=== PATIENT | female | born 1975 | race Caucasian/White ===

== ENCOUNTER 2021-09-11 18:26 | Inpatient (IN) | payer SELFPAY ==
[~2021-09-11] VITALS: Ht 154.9 cm; Wt 68.0 kg
[2021-09-11] MEDS ORDERED: SODIUM CHLORIDE 0.9% 1000ML 1,000 ML IV ONE (18:45)
[2021-09-11] MEDS ORDERED: ASPIRIN 325 MG TAB PO ONE (18:45)
[2021-09-11 18:54] LABS: BASOPHILS # (AUTO) 0.1 (0.0-0.1); BASOPHILS % 0.7 % (0.0-1.0); EOSINOPHILS % 0.1 % (0.0-6.0); HEMATOCRIT 47.3 % (34.2-44.1); HEMOGLOBIN 15.9 g/dL (12.0-16.0); LYMPHOCYTES # (AUTO) 0.3 (1.0-3.2); LYMPHOCYTES % 3.7 % (18.0-39.1); MEAN CORPUSCULAR HEMOGLOBIN 30.7 pg (28-32); MEAN CORPUSCULAR HGB CONC 33.6 g/dL (31-35); MEAN CORPUSCULAR VOLUME 91.3 fL (81-99); MONOCYTES # (AUTO) 0.2 (0.2-0.8); MONOCYTES % 2.4 % (4.4-11.3); NEUTROPHILS % 92.6 % (38.7-80.0); RED BLOOD COUNT 5.18 x10e6/uL (3.6-5.1); RED CELL DISTRIBUTION WIDTH 13.4 % (11.7-14.4)
[2021-09-11 18:57] LABS: PLATELET COUNT 54 x10e3/uL (140-360)
[2021-09-11 19:08] LABS: ALANINE AMINOTRANSFERASE 75 IU/L (0-55); ALBUMIN 2.8 g/dL (3.5-5.0); ALBUMIN/GLOBULIN RATIO 0.5 (0.8-2.0); ALKALINE PHOSPHATASE 77 IU/L (40-150); ANION GAP 22.9 mmol/L (8-16); BLOOD UREA NITROGEN 53 mg/dL (7-26); BUN/CREATININE RATIO 14 (6-25); CALCIUM 8.6 mg/dL (8.4-10.2); CARBON DIOXIDE 15 mmol/L (22-29); CHLORIDE 97 mmol/L (98-107); CREATININE, SERUM 3.67 mg/dL (0.57-1.11); GLUCOSE 107 mg/dL (74-118); POTASSIUM 3.9 mmol/L (3.5-5.1); SODIUM 131 mmol/L (136-145)
[2021-09-11] MEDS ORDERED: SODIUM CHLORIDE FLUSH 10 ML SYR INJ PRN (19:45)
[2021-09-11] MEDS ORDERED: ONDANSETRON HCL INJ 2MG/ML 2ML 2 MG/ML VIAL IV PRN (19:45)
[2021-09-11 20:35] LABS: BAND NEUTROPHILS % (MANUAL) 29 %; LYMPHOCYTES % (MANUAL) 7 % (19-48); METAMYELOCYTES % (MANUAL) 18 % (0-0); MONOCYTES % (MANUAL) 4 % (3.4-9.0); MYELOCYTES % (MANUAL) 1 % (0-0); NEUTROPHILS % (MANUAL) 41 % (40-74)
[2021-09-11 20:36] LABS: PLATELET ESTIMATE MARKEDLY DECREASED
[2021-09-11 20:37] LABS: PLATELET MORPHOLOGY COMMENT NORMAL; RBC MORPHOLOGY COMMENT NORMAL
[2021-09-11] MEDS ORDERED: SODIUM BICARBONATE 8.4% INJ 50 ML SYR IV STA (21:50)
[2021-09-11] MEDS ORDERED: MAGNESIUM HYDROXIDE 30 ML UDC PO PRN (22:00)
[2021-09-11] MEDS ORDERED: HYDROCODONE/APAP 5MG-325MG TAB PO PRN (22:00)
[2021-09-11] MEDS ORDERED: HYDRALAZINE HCL 20 MG/ML VIAL IV PRN (22:00)
[2021-09-11] MEDS ORDERED: NICOTINE 21 MG/EA PATCH TOP PRN (22:00)
[2021-09-11] MEDS ORDERED: MELATONIN 3 MG TAB PO PRN (22:00)
[2021-09-11] MEDS ORDERED: Morphine 2mg Syringe 2 MG/ML SYR IV PRN (22:00)
[2021-09-11 22:23] LABS: CHOL/HDL RATIO 19.2 (3.0-3.6)
[2021-09-11] MEDS: AZITHROMYCIN 250 MG TAB PO SCH (22:45)
[2021-09-11] MEDS: SODIUM CHLORIDE 0.9% 1000ML 1,000 ML IV SCH (22:46)
[2021-09-12] VITALS (9 sets, daily range): BP systolic 95–110; BP diastolic 46–71
[2021-09-12] MEDS: ACETAMINOPHEN 325 MG TAB PO PRN ×3 (03:29→23:37)
[2021-09-12] MEDS ORDERED: LIPITOR20 MG PO (04:26)
[2021-09-12] MEDS ORDERED: CLOPIDOGREL75 MG PO (04:26)
[2021-09-12] MEDS ORDERED: AMLODIPINE BESYL5 MG PO (04:26)
[2021-09-12] MEDS ORDERED: METOPROLOL TART25 MG PO (04:26)
[2021-09-12] MEDS ORDERED: ASPIRIN81 MG PO (04:26)
[2021-09-12 07:16] LABS: BASOPHILS % 0.3 % (0.0-1.0); HEMATOCRIT 39.4 % (34.2-44.1); HEMOGLOBIN 13.6 g/dL (12.0-16.0); LYMPHOCYTES # (AUTO) 0.5 (1.0-3.2); LYMPHOCYTES % 7.4 % (18.0-39.1); MEAN CORPUSCULAR HEMOGLOBIN 31.1 pg (28-32); MEAN CORPUSCULAR HGB CONC 34.5 g/dL (31-35); MEAN CORPUSCULAR VOLUME 90.2 fL (81-99); MONOCYTES # (AUTO) 0.1 (0.2-0.8); MONOCYTES % 2.2 % (4.4-11.3); NEUTROPHILS # (AUTO) 5.7 (2.1-6.9); NEUTROPHILS % 89.6 % (38.7-80.0); RED BLOOD COUNT 4.37 x10e6/uL (3.6-5.1); RED CELL DISTRIBUTION WIDTH 13.2 % (11.7-14.4)
[2021-09-12 07:40] LABS: PLATELET COUNT 37 x10e3/uL (140-360)
[2021-09-12 07:54] LABS: ANION GAP 16.1 mmol/L (8-16); CALCIUM 7.5 mg/dL (8.4-10.2); CREATININE, SERUM 3.44 mg/dL (0.57-1.11); POTASSIUM 3.1 mmol/L (3.5-5.1)
[2021-09-12] MEDS ORDERED: ASPIRIN 81 MG CHEW TAB PO SCH (09:00)
[2021-09-12] MEDS: AZITHROMYCIN 250 MG TAB PO SCH (09:45)
[2021-09-12] MEDS: SODIUM CHLORIDE 0.9% 1000ML 1,000 ML IV SCH (11:20)
[2021-09-12 12:30] LABS: BAND NEUTROPHILS % (MANUAL) 23 %; LYMPHOCYTES % (MANUAL) 3 % (19-48); MONOCYTES % (MANUAL) 2 % (3.4-9.0); NEUTROPHILS % (MANUAL) 71 % (40-74)
[2021-09-12 12:31] LABS: PLATELET ESTIMATE MARKEDLY DECREASED; PLATELET MORPHOLOGY COMMENT NORMAL; RBC MORPHOLOGY COMMENT NORMAL; TOXIC GRANULATION SLIGHT
[2021-09-12] MEDS ORDERED: POTASSIUM CHLORIDE 20 MEQ TAB CR PO ONE (14:15)
[2021-09-12] MEDS ORDERED: ENOXAPARIN 30 MG/0.3 ML SYR SC SCH (17:00)
[2021-09-12] MEDS: LACTATED RINGER'S 1,000 ML INJ SCH (18:45)
[2021-09-12] MEDS ORDERED: GUAIFENESIN/DEXTROMETHORPHAN LIQD 5 ML UDC PO PRN (23:45)
[2021-09-13 00:44] VITALS: BP 101/66
[2021-09-13] MEDS: LACTATED RINGER'S 1,000 ML INJ SCH (03:26)
[2021-09-13 04:35] VITALS: BP 103/69
[2021-09-13 06:15] LABS: BASOPHILS % 0.5 % (0.0-1.0); EOSINOPHILS % 0.3 % (0.0-6.0); HEMATOCRIT 41.9 % (34.2-44.1); HEMOGLOBIN 14.4 g/dL (12.0-16.0); LYMPHOCYTES # (AUTO) 0.8 (1.0-3.2); LYMPHOCYTES % 10.4 % (18.0-39.1); MEAN CORPUSCULAR HEMOGLOBIN 30.6 pg (28-32); MEAN CORPUSCULAR HGB CONC 34.4 g/dL (31-35); MEAN CORPUSCULAR VOLUME 89.1 fL (81-99); MONOCYTES # (AUTO) 0.3 (0.2-0.8); MONOCYTES % 3.4 % (4.4-11.3); NEUTROPHILS # (AUTO) 6.7 (2.1-6.9); NEUTROPHILS % 84.8 % (38.7-80.0); RED CELL DISTRIBUTION WIDTH 12.9 % (11.7-14.4)
[2021-09-13 06:39] LABS: PLATELET COUNT 36 x10e3/uL (140-360)
[2021-09-13 06:44] LABS: ANION GAP 15.4 mmol/L (8-16); CREATININE, SERUM 3.07 mg/dL (0.57-1.11); POTASSIUM 3.4 mmol/L (3.5-5.1)
[2021-09-13 08:55] LABS: BAND NEUTROPHILS % (MANUAL) 12 %; EOSINOPHILS % (MANUAL) 1 % (0-7); LYMPHOCYTES % (MANUAL) 3 % (19-48); MONOCYTES % (MANUAL) 3 % (3.4-9.0); NEUTROPHILS % (MANUAL) 80 % (40-74); PLATELET ESTIMATE MARKEDLY DECREASED; PLATELET MORPHOLOGY COMMENT NORMAL; RBC MORPHOLOGY COMMENT NORMAL
[2021-09-13] MEDS ORDERED: CLOPIDOGREL BISULFATE 75 MG TAB PO SCH (09:00)
== END 2021-09-13 07:38 | disposition left against medical advice (07) | DRG 682 ==
LOC: ER 18:33 → ERHOLD 19:44 → OBSVTOIN 22:00 → MED/SURG3 23:41
PROVIDERS: ADMIT Internal Medicine; ATTEND Internal Medicine
DX: N17.9 Acute kidney failure, unspecified (principal); J18.9 Pneumonia, unspecified organism; E87.2 Acidosis; E87.6 Hypokalemia; D69.6 Thrombocytopenia, unspecified; I25.10 Atherosclerotic heart disease of native coronary artery without angina pectoris; Z95.5 Presence of coronary angioplasty implant and graft; I12.9 Hypertensive chronic kidney disease with stage 1 through stage 4 chronic kidney disease, or unspecified chronic kidney disease; N18.30 Chronic kidney disease, stage 3 unspecified; Z20.822 Contact with and (suspected) exposure to COVID-19; B34.9 Viral infection, unspecified; F17.200 Nicotine dependence, unspecified, uncomplicated
CPT/HCPCS: 0223U; 36415; 71045; 76770; 80048; 80053; 80061; 84165; 84484; 85025; 93005; 93306; 99284; J0696; J7030; J7121